=== PATIENT | female | born 1965 | race Caucasian/White ===

== ENCOUNTER 2019-06-28 14:14 | Outpatient (CLI) | payer MEDICARE, BC ==
[~2019-06-28 14:14] MED LIST: BUPIVACAINE HCL 0.5% (5MG/ML) PF 10ML VIAL IV ONE; IOHEXOL 300 MG/ML BOTTLE 50 ML ONE; Lidocaine 1% 5ml 10 MG/ML VIAL ONE; methylPREDNISolone ACETATE 40 MG/ML VIAL IM ONE
== END 2019-06-28 16:03 | disposition home or self-care (01) ==
LOC: OUT 14:14
PROVIDERS: ATTEND Physical Medicine & Rehabilitation Pain Medicine
DX: M16.0 Bilateral primary osteoarthritis of hip (principal)
CPT/HCPCS: 99202; G0463; J1030; J3490